=== PATIENT | female | born 1955 | race Caucasian/White ===

== ENCOUNTER → 2017-09-30 | Outpatient (CLI) | payer OTHER ==
[~2017-09-30] MED LIST: BUPR100T8 PO; DOCU-94 PO; DULO-24 PO; LEVO100T7 PO; MTR800 PO; ROSU20TA PO
== END | disposition home or self-care (01) ==
LOC: C.LABPVFM 11:53
PROVIDERS: ATTEND Family Medicine
DX: R39.9 Unspecified symptoms and signs involving the genitourinary system (principal)